=== PATIENT | female | born 1995 | race Hispanic/Latino ===

== ENCOUNTER 2018-08-10 18:09 | Inpatient (IN) | payer OTHER ==
[2018-08-10] MEDS ORDERED: METHYLERGONOVINE 0.2MG/ML AMP IM PRN (21:30)
[2018-08-10] MEDS ORDERED: BUTORPHANOL 1 MG/ML INJ IV PRN (21:30)
[2018-08-10] MEDS ORDERED: PROMETHAZINE 25 MG/ML VIAL IV PRN (21:30)
[2018-08-10] MEDS ORDERED: CARBOPROST TROME 250 MCG/ML IM PRN (21:30)
[2018-08-10] MEDS ORDERED: Ringers Lactate 1,000 ML IV PRN (21:30)
[2018-08-10] MEDS ORDERED: LIDOCAINE 1% MPF 30 ML VIAL ONE (21:43)
[2018-08-10] MEDS ORDERED: OXYTOCIN/LR 20 UNIT/1,000 ML BAG IV ONE (21:44)
[2018-08-10] MEDS ORDERED: METHYLERGONOVINE 0.2MG/ML AMP IM ONE (21:44)
[2018-08-10] MEDS ORDERED: CARBOPROST TROME 250 MCG/ML IM ONE (21:44)
[2018-08-10 21:52] LABS: RPR Titer ND
[2018-08-10 21:59] LABS: Urine Appearance CLEAR; Urine Bilirubin NEGATIVE (NEG); Urine Blood NEGATIVE (NEG); Urine Color YELLOW; Urine Glucose NEGATIVE (NEG); Urine Microscopic Reflex ORDER UMIC; Urine Protein NEGATIVE (NEG); Urine Urobilinogen 0.2 mg/dL (0.2-1.0); Urine pH 6.5 (5.0-7.0)
[2018-08-10] MEDS ORDERED: OXYTOCIN/LR 20 UNIT/1,000 ML BAG IV SCH (22:00)
[2018-08-10] MEDS ORDERED: Ringers Lactate 1,000 ML IV SCH (22:00)
[2018-08-10 22:03] LABS: Absolute Lymphocytes (CBC) 2.2 K/uL (0.7-4.9); Absolute Monocytes 0.6 K/uL (0.1-1.3); Absolute Neutrophil 9.3 K/uL (1.8-8.0); Basophils % 0.7 % (0-1.3); Eosinophils % 0.3 % (0-4.4); Hematocrit 37.5 % (36.0-45.0); Lymphocytes % 17.9 % (15.3-44.8); MPV 11.3 fL (7.6-11.3); Monocytes % 4.6 % (3.3-12.3); RBC Red Blood Cell Count 4.02 M/uL (3.86-4.86)
[2018-08-10] MEDS ORDERED: FENTANYL CITR 100 MCG/2 ML IV ONE (22:12)
[2018-08-10] MEDS ORDERED: ROPIVACAINE HCL 100 ML IV PRN (22:12)
[2018-08-10 22:13] LABS: Urine Bacteria >50 /HPF (<20); Urine Culture Reflex Order REFLEXED; Urine RBC NONE SEEN /HPF (NONE SEEN)
[2018-08-10] MEDS ORDERED: ROPIVACAINE HCL 0.2% 20ML AMP IV ONE (22:14)
--- NOTE | 2018-08-10 22:18 | P.OBGYNHP ---
Certification for Inpatient Patient admitted to: Inpatient With expected LOS: >2 Midnights Patient will require the following post-hospital care: None Practitioner: I am a practitioner with admitting privileges, knowledge of patient current condition, hospital course, and medical plan of care. Services: Services provided to patient in accordance with Admission requirements found in Title 42 Section 412.3 of the Code of Federal Regulations Patient History Date of Service: 08/10/18 Reason for admission: LABOR History of Present Illness: Patient is a 22-year-old 2 para 1001 who presents at 37 weeks and 3 days gestation in active labor. Patient presents to Labor and delivery was found to be 2 cm dilated an 80% effaced. She was then checked again approximately an hr and half later and was found to be 6 cm dilated 80% effaced- 2 station. Patient has been having contractions throughout the day. She presented to Labor and delivery once they worsened. She is now ruptured. Clear fluid has presented. She denies vaginal bleeding. She reports good movements. She has obtained care in my office beginning at 11 weeks gestation. Patient has been compliant with all visits. She has seen [facility] for this care is well due to obesity. Then risk of recurrent preeclampsia. Patient has been doing well she has been taking did she had a 24 hr urine protein done recently which was normal. She is Rh negative. RhoGAM was given at 28 weeks. See record for further details. Allergies No Known Allergies Allergy (Verified 05/22/15 08:06) Home Medications: No.137/Iron/Folic Acd [ Tablet] 1 tab PO DAILY 05/24/15 - Past Medical/Surgical History Diabetic: No -: Obesity -: wisdom teeth 2012 - Family History Family History: Reviewed- Non-Contributory - Social History Smoking Status: Never smoker Alcohol use: No CD- Drugs: No Caffeine use: No Review of Systems 10-point ROS is otherwise unremarkable Physical Examination - General General: Alert, Oriented x3 HEENT: Atraumatic Neck: Supple Respiratory: Normal air movement Cardiovascular: No edema, Normal pulses Musculoskeletal: No clubbing, No swelling Integumentary: No rashes, No breakdown Neurological: Normal gait, Normal speech - Female Pelvic External genitalia: Normal Vagina: Normal, [place], Moist Cervix: Dilation (6 cm), Effacement (80%), station (-2) Uterus: Gravid Adnexa: Unable to evaluate - Obstetrics heart rate tracing: Category 2 Contractions: Frequency (Every 3 min) Amniotic membrane: SROM Laboratory Data (last 24 hrs) 08/10/18 21:31: WBC 12.2 H, Hgb 12.5, Hct 37.5, Plt Count 274 Microbiology Data (last 24 hrs): GBS negative Assessment and Plan - Plan Bree is a 22-year-old 2 para 1001 who presents at 37 weeks and 3 days gestation in active labor. Patient desires epidural. Anesthesia be notified. Continuous maternal monitoring be performed. GBS negative. Anticipate vaginal . Discharge Plan: Home Plan to discharge in: 48 Hours - Advance Directives Does patient have a Living Will: No Does patient have a Durable POA for Healthcare: No
[2018-08-10 22:26] VITALS: BMI 43.2
[2018-08-10] MEDS ORDERED: ROPIVACAINE HCL 100 ML IV ONE (22:30)
[2018-08-10] MEDS ORDERED: ROPIVACAINE HCL 0 ML ONE (22:30)
[2018-08-10] MEDS ORDERED: FENTANYL CITR 100 MCG/2 ML ONE (22:30)
[2018-08-10] MEDS ORDERED: Oxycodone HCl/Acetaminophen 1 TAB TAB PO PRN (23:14)
[2018-08-10] MEDS ORDERED: Rho(D) IG (HUMAN) 300 MCG SYR IM PRN (23:14)
[2018-08-10] MEDS ORDERED: ONDANSETRON 4 MG (ODT) TAB PO PRN (23:14)
[2018-08-10] MEDS ORDERED: ACETAMINOPHEN 500 MG TAB PO PRN (23:14)
[2018-08-10] MEDS ORDERED: METHYLERGONOVINE 0.2 MG TAB PO PRN (23:14)
[2018-08-10] MEDS ORDERED: DOCUSATE NA/SENNA CONC 1 TAB PO PRN (23:14)
[2018-08-10] MEDS ORDERED: BISACODYL 10 MG RECTAL SUPP RECT PRN (23:14)
--- NOTE | 2018-08-10 23:14 | P.OP ---
Date of Service: 08/10/18 Findings and Operative Technique She delivered a viable female infant in cephalic presentation on August 10, 2018 at . Infant was delivered in RACHANA position once was delivered. The nose and mouth were suctioned with a suction bulb. Cord was clamped and cut. was placed on mother's abdomen for skin to skin bonding. Attention was then turned to the umbilical cord. Cord blood was obtained. Placenta was then delivered with gentle traction. Placenta was noted to be intact. Fundus was palpated and found to be firm. Perineum was inspected and a superficial laceration was located on the right vaginal sidewall. No sutures were needed. Estimated blood loss was 150 cc. Apgars were assigned ____. Weight was found to be . Both mom and baby are doing well.
[2018-08-11] MEDS: IBUPROFEN 200 MG TAB PO PRN ×2 (11:06→20:08)
[2018-08-11 13:35] LABS: Absolute Lymphocytes (CBC) 2.5 K/uL (0.7-4.9); Absolute Monocytes 0.5 K/uL (0.1-1.3); Absolute Neutrophil 7.2 K/uL (1.8-8.0); Basophils % 0.6 % (0-1.3); Eosinophils % 0.5 % (0-4.4); Hematocrit 33.3 % (36.0-45.0); Lymphocytes % 23.9 % (15.3-44.8); MPV 10.7 fL (7.6-11.3); Monocytes % 5.3 % (3.3-12.3); RBC Red Blood Cell Count 3.54 M/uL (3.86-4.86)
[2018-08-11 22:22] LABS: RPR (Rapid Plasma Reagin) NON-REACT (NON-REACT)
[2018-08-12] MEDS: IBUPROFEN 200 MG TAB PO PRN (04:23)
[2018-08-12] MEDS ORDERED: FENTANYL CITR 100 MCG/2 ML IV ONE (10:03)
[2018-08-12] MEDS ORDERED: ROPIVACAINE HCL 100 ML IV PRN (10:03)
[2018-08-12] MEDS ORDERED: ROPIVACAINE HCL 0.2% 20ML AMP IV ONE (10:06)
[2018-08-12 13:17] VITALS: BP 133/72; TEMP 97.3
[2018-08-15 12:50] LABS: HBsAG Nonreactive (Nonreactive)
== END 2018-08-12 09:30 | disposition home or self-care (01) | DRG 806 ==
LOC: L&D 18:09 → 2ND-WC 21:24
PROVIDERS: ADMIT Student in an Organized Health Care Education/Training Program; ATTEND Student in an Organized Health Care Education/Training Program
PROC: 10E0XZZ Delivery of Products of Conception, External Approach (ICD-10-PCS; principal; 2018-08-10)
PROC: 3E0234Z Introduction of Serum, Toxoid and Vaccine into Muscle, Percutaneous Approach (ICD-10-PCS; 2018-08-10)
DX: O36.0930 Maternal care for other rhesus isoimmunization, third trimester, not applicable or unspecified (principal); O71.4 Obstetric high vaginal laceration alone; Z37.0 Single live birth; Z68.41 Body mass index [BMI] 40.0-44.9, adult; O99.214 Obesity complicating childbirth; Z3A.37 37 weeks gestation of pregnancy; O40.3XX0 Polyhydramnios, third trimester, not applicable or unspecified
CPT/HCPCS: 36415; 81003; 81015; 85025; 85461; 86592; 86850; 86901; 87086; 87088; 87340; 88307; J0595; J2210; J2590; J2790; J2795; J3010